=== PATIENT | male | born 1935 | race Caucasian/White ===

== ENCOUNTER 2020-09-28 13:44 | Inpatient (IN) | payer OTHER ==
[~2020-09-28] VITALS: Ht 180.3 cm; Wt 105.9 kg
[~2020-09-28 13:44] MED LIST: ALDACTONE25 MG PO; AMLODIPINE BESY10 MG PO; ASPIR 8181 MG PO; BLOOD PRESSURE MED; CARAFATE 1 GM TA1 G1 PO; CO Q-1050 MG PO; COZAAR 25 MG TA25 MG PO; FISH OIL500 MG PO; IBUPROFEN 200200 M1 PO; LIPITOR10 MG PO; PAIN RELIEF CRE57 GM TP; PROTONIX40 M1 PO; SUPER B-50 COM1 EACH PO; TYLENOL325 MG PO
[2020-09-28 13:50] VITALS: BP 88/51
[2020-09-28 14:23] LABS: ABSOLUTE NEUTROPHILS 11.6 thou/uL (1.4-8.2); BASOPHILS 0.5 % (0.0-2.0); EOSINOPHILS 0.8 % (0.0-3.0); HEMATOCRIT 39.7 % (42.0-52.0); HEMOGLOBIN 13.3 gm/dL (14.0-18.0); LYMPHOCYTES 3.5 % (24.0-44.0); MCH 35.1 pg (26.0-34.0); MCHC 33.4 g/dL (28.0-37.0); MCV 105.3 fL (80.0-100.0); MONOCYTES 4.9 % (1.0-8.0); PLATELET COUNT 225 thou/uL (150-400); POLYS 90.3 % (36.0-66.0); RBC 3.78 mil/uL (4.50-6.00); WBC 12.8 thou/uL (4.0-11.0)
[2020-09-28 14:30] LABS: BE(vivo) -1.9 mmol/L (-2 to +3); HCO3 21.7 mmol/L (22.0-26.0); PCO2 33.7 mmHg (35.0-45.0); PO2 70.7 mmHg (80.0-100.0); pH 7.427 (7.360-7.450); sO2 94.8 % (92.0-98.0)
[2020-09-28 14:34] LABS: ANION GAP 11 mmol/L (7-16); BUN 41 mg/dL (7-18); CHLORIDE 102 mmol/L (98-107); CO2 26 mmol/L (21-32); CREATININE 2.6 mg/dL (0.7-1.3); GLUCOSE 125 mg/dL (74-106); POTASSIUM 4.1 mmol/L (3.5-5.1); SODIUM 139 mmol/L (136-145)
[2020-09-28 14:44] LABS: ALBUMIN 3.9 g/dL (3.4-5.0); DIRECT BILIRUBIN 0.3 mg/dL (<0.1-0.2); MAGNESIUM 2.5 mg/dL (1.8-2.4); PHOSPHORUS 3.4 mg/dL (2.6-4.7); SGOT 34 U/L (15-37); SGPT 32 U/L (16-63); TOTAL BILIRUBIN 1.3 mg/dL (0.2-1.0); TOTAL PROTEIN 8.1 g/dL (6.4-8.2); TROPONIN-I <0.06 ng/mL (<0.06)
--- NOTE | 2020-09-28 14:56 | EKG ---
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 : 1935 Requested By: Ismael Tai Order Number: [id number] MD: Noman Webb Measurements Intervals [place] Rate: 60 P: 119 ND: 182 QRS: 139 QRSD: 171 T: 0 QT: 526 QTc: 526 Interpretive Statements A-V dual-paced rhythm with some inhibition No further analysis attempted due to paced rhythm Baseline wander in lead(s) V3 Compared to ECG 12/10/2014 08:02:48 Sinus rhythm no longer present First degree AV block no longer present Right bundle-branch block no longer present Left anterior fascicular block no longer present Bifascicular block no longer present Myocardial infarct finding no longer present Electronically Signed On 09-28-2020 14:56:08 CDT by Noman Webb [email or web address] <ELECTRONICALLY SIGNED> By: Noman Webb MD, FAC 09/28/20 1456 1439 1439 Noman Webb MD, [facility] /EPI
[2020-09-28 15:33] LABS: URINE BILIRUBIN NEGATIVE (Negative); URINE BLOOD NEGATIVE (Negative); URINE CLARITY CLEAR; URINE COLOR YELLOW; URINE GLUCOSE-RANDOM* NEGATIVE (Negative); URINE KETONES NEGATIVE (Negative); URINE LEUKOCYTES-REFLEX NEGATIVE (Negative); URINE NITRITE-REFLEX NEGATIVE (Negative); URINE PROTEIN (DIPSTICK) NEGATIVE (Negative); URINE UROBILINOGEN 0.2 E.U./dl (0.2-1.0)
[2020-09-28 15:36] VITALS: BP 105/71
[2020-09-28 16:44] VITALS: BP 107/72
[2020-09-28 17:00] VITALS: BP 103/72
--- NOTE | 2020-09-28 18:31 | NUR ---
PATIENT ADMITTED TO 358 THIS SHIFT. PATIENT'S , ELIE, AND DAUGHTER, ANDIE, AT BEDSIDE. UPON ARRIVAL, PATIENT'S O2 MID 80'S, PATIENTS EARS AND NOSE PURPLE/DUSKY ON 4L NC. TITRATED O2 TO 6L NC AND O2 SAT INCREASED TO LOW 90'S, OTHERWISE VSS. SEE ADMISSION ASSESSMENT.
[2020-09-28 19:28] VITALS: BP 106/56
[2020-09-29 04:09] VITALS: BP 93/51
[2020-09-29 05:15] LABS: HEMATOCRIT 33.4 % (42.0-52.0); HEMOGLOBIN 11.5 gm/dL (14.0-18.0); MCH 35.9 pg (26.0-34.0); MCHC 34.3 g/dL (28.0-37.0); MCV 104.7 fL (80.0-100.0); RBC 3.19 mil/uL (4.50-6.00); RDW 15.7 % (10.5-14.5); WBC 12.5 thou/uL (4.0-11.0)
[2020-09-29 05:20] LABS: CALCIUM 8.8 mg/dL (8.5-10.1); CREATININE 2.8 mg/dL (0.7-1.3); POTASSIUM 4.3 mmol/L (3.5-5.1)
--- NOTE | 2020-09-29 06:47 | NUR ---
PROGRESS PT A/O X4 VSS, BP A LITTLE LOW BUT PT NOT OOB THIS SHIFT 89/51. SL LOCK TO RAC FLUSHES WITHOUT DIFFICULTY. 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 HOGAN CATH DRAINING A LARGE AMOUNT OF CLEAR YELLOW URINE. PT DENIES PAIN. SCD' IN PLACE CONTINUE TO MONITOR.
[2020-09-29 08:09] VITALS: BP 92/60
--- NOTE | 2020-09-29 13:43 | NUR ---
PT ON 6L OF OXYGEN, SOB WITH EXERTION. CPAP AT NIGHT TIME. UP CHAIR WITH PT, CHAIR ALARM ON. HOGAN CATHETER IN PLACE, PATENT AND SECURED. FALL PRECAUTIONS IN PLACE. PT FAMILY VISITING. DENIES ANY NEEDS AT MOMENT.
--- NOTE | 2020-09-29 14:09 | NUR ---
Case opened to follow for possible home o2/ home health referrals at me. Technical Project Coordinator visited with the pt and his spouse Do at [facility]. He is a&ox4 and reports that he is feeling better but concerned he may need home o2 at me. He has had it before but sent it back as he didn't want to use it at home and hassle with the big Etanks for outings. He has not had any hh before. He lives with his in their split level home of many years. He has a rwalker and cpap and is normally independent with gait and adl's. His pcp is Dr. Vineet Sethi. They have modified their home with stair glides so they can manage the multiple levels with easy. No steps to enter through the garage. does the laundry in the basement. He is open to home o2 again and hh if needed at me. He is not sure he will be homebound. He denies preference for providers. He notes multi level home makes o2 mgnt difficult especially with Etanks. He might consider an [employer] system. M tanks and concentrator discussed as well as they are smaller. Referrals faxed to [facility] for possible referrals. Pt would like to see how he does before accepting either service. Cm role introduced. Will follow along and revisit with pt once me recommendations noted.
[2020-09-29 15:25] VITALS: BP 95/63
[2020-09-29 19:09] VITALS: BP 100/69
[2020-09-30 04:15] VITALS: BP 105/66
[2020-09-30 04:49] LABS: MCH 36.1 pg (26.0-34.0); MCHC 34.4 g/dL (28.0-37.0); RBC 3.05 mil/uL (4.50-6.00)
[2020-09-30 05:02] LABS: ANION GAP 11 mmol/L (7-16); BUN 47 mg/dL (7-18); CALCIUM 8.7 mg/dL (8.5-10.1); CHLORIDE 99 mmol/L (98-107); CO2 25 mmol/L (21-32); CREATININE 2.6 mg/dL (0.7-1.3); GLUCOSE 105 mg/dL (74-106); POTASSIUM 3.6 mmol/L (3.5-5.1); SODIUM 135 mmol/L (136-145)
--- NOTE | 2020-09-30 06:24 | NUR ---
PROGRESS PT A/O X4 IV SL FLUSHES WITHOUT DIFICULTY. PT NOT OOB THIS SHIFT BUT WAS UP IN CHAIR FOR MOST OF DAY. VSS, ON 4 TO 6 LITRS O2 CPAP APPLIED AT HS PT SLEPT SOUNDLY ALL SHIFT. UP THIS AM ASKED IF HIS DISCHARGE PAPERS WERE READY. STATES HE FEELS GOOD AND WANTS TO GO HOME. HOGAN INTACT DAINING CLEAR YELLOW URINE IN ADEQUATE AMOUNTS NO BM THIS SHIFT PT DENIES PAIN AND NAUSEA.
[2020-09-30 06:58] VITALS: BP 95/64
--- NOTE | 2020-09-30 08:42 | 2DMMODE ---
[facility] [place] [address] 2 D/M-MODE ECHOCARDIOGRAM Name: ESSENCE RODRÍGUEZ Room #: 358-P ADM IN M.R.#: [id number] Admission: 09/28/20 Attend Phys: Jarvis Davey MD Discharge: Date of : 37 Report #: [id number] THIS REPORT FOR: cc: Deion Sethi MD, Christopher B. MD Lundgren, Craig H. MD [facility] ~ APPROVED REPORT Study performed: 09/30/2020 07:51:15 EXAM: Comprehensive 2D, Doppler, and color-flow Echocardiogram Patient Location: Bedside Room #: 358 Status: routine BSA: 2.26 HR: 65 bpm BP: 95/64 mmHg Rhythm: Pacemaker Other Information Study Quality: Adequate Technically limited study due to obesity. Indications Short of breath, swelling, CHF. Hx: CABG, CHF, AICD 2D Dimensions RVDd: 50.97 mm IVSd: 9.03 (7-11mm) LVOT Diam: 23.68 (18-24mm) LVDd: 63.91 mm PWd: 9.50 (7-11mm) Ascending Ao: 36.33 (22-36mm) LVDs: 60.07 (25-40mm) Left Atrium: 49.39 (27-40mm) Aortic Root: 38.11 mm Volumes Left Atrial Volume (Systole) Single Plane 4CH: 95.47 mL Single Plane 2CH: 118.89 mL LA ESV Index: 51.00 mL/m2 Aortic Valve AoV Peak Luis Enrique.: 1.14 m/s AO Peak Gr.: 5.23 mmHg LVOT Max P.16 mmHg [facility] [address] [place] [address] 2 D/M-MODE ECHOCARDIOGRAM Name: ESSENCE RODRÍGUEZ Aubrey Room #: 358-P [facility] IN [facility]#: [id number] Admission: 09/28/20 Attend Phys: Jarvis Davey MD Discharge: Date of : 37 Report #: [id number] LVOT Max V: 0.54 m/s MANJU Vmax: 2.07 cm2 Mitral Valve MV Decel. Time: 156.31 ms MV E Max Luis Enrique.: 0.89 m/s Pulmonary Valve PV Peak Luis Enrique.: 0.78 m/s PV Peak Gr.: 2.44 mmHg Pulmonary Vein P Vein S: 0.50 m/s P Vein D: 0.64 m/s P Vein S/D Ratio: 0.78 Tricuspid Valve TR Peak Luis Enrique.: 3.50 m/s RAP Estimate: 10.00 mmHg TR Peak Gr.: 49.07 mmHg PA Pressure: 59.00 mmHg Left Ventricle Left ventricle is moderately dilated. There is global hypokinesis of the left ventricle. There is normal left ventricular wall thickness. Left ventricular systolic function is severely decreased. LVEF is less than 20%. This study is not technically sufficient to allow evaluation of the LV diastolic function. Right Ventricle Right ventricle is moderately dilated. Right ventricle is hypokinetic. Atria Left atrium is severely dilated. Right atrium is moderately dilated. Aortic Valve The aortic valve is mildly calcified. Trace aortic regurgitation. There is no aortic valvular stenosis. Mitral Valve Mild mitral annular calcification. Mild mitral regurgitation. No evidence of mitral valve stenosis. Tricuspid Valve The tricuspid valve is normal in structure. Mild to moderate tricuspid regurgitation. Estimated PAP is 55-60mmHg. [facility] [address] [place] [address] 2 D/M-MODE ECHOCARDIOGRAM Name: ESSENCE RODRÍGUEZ Aubrey Room #: 358-P [facility] IN ..#: [id number] Admission: 09/28/20 Attend Phys: Javris Davey MD Discharge: Date of : 37 Report #: [id number] Pulmonic Valve The pulmonary valve is normal in structure. Mild pulmonic regurgitation. Great Vessels Aortic root is borderline dilated. The ascending aorta is normal in size. IVC is dilated and collapses >50% with inspiration. Pericardium There is no pericardial effusion. <Conclusion> Left ventricular systolic function is severely decreased. There is global hypokinesis of the left ventricle. LVEF is less than 20%. Both atria are dilated. Pacing or ICD wires in right heart The aortic valve is mildly calcified. Trace aortic regurgitation, no stenosis. Mild mitral annular calcification. Mild mitral regurgitation. Mild to moderate tricuspid regurgitation. Estimated pulmonary artery pressure of 55-60mmHg. There is no pericardial effusion. <ELECTRONICALLY SIGNED> By: Mitul Alfredo MD, [facility] 09/30/20841 1 1 Mitul Alfredo MD, FAC /INF
[2020-09-30 08:49] LABS: CHOLESTEROL 119 mg/dL (<200); HDL CHOLESTEROL 53 mg/dL (>40); LDL CHOLESTEROL 55 mg/dL (<100); TC:HDL 2.2 Ratio (Not establshd); TRIGLYCERIDE 59 mg/dL (<150); VLDL 12 mg/dL (<40)
--- NOTE | 2020-09-30 13:40 | NUR ---
SW reviewed chart and spoke with nursing and attending physician. Pt is slowly progressing towards goals for discharge. Discharge home is anticipated in 1-2 days. Pt is on 5L of O2. Pt had chest CT earlier today. [facility] are following for HH and Home O2. SW met with pt and spouse at bedside to provide update and discuss discharge plan. Pt and spouse are agreeable. SW is following to assist as needed with discharge planning.
[2020-09-30 15:11] VITALS: BP 97/64
[2020-09-30 20:54] VITALS: BP 103/60
[2020-10-01] VITALS (14 sets, daily range): BP systolic 91–107; BP diastolic 57–70
--- NOTE | 2020-10-01 04:17 | NUR ---
Patient making slow progress towards outcome goals, High fall risks, fall precautions in place. Requiring 6L oxygen bled in CPAP to maintain adequate oxygenation.
--- NOTE | 2020-10-01 09:11 | HC ---
[facility] [place] [address] CONSULTATION Name: ESSENCE RODRÍGUEZ Room #: 358-[facility] IN .R.#: [id number] Admission: 09/28/20 Attend Phys: Jarvis Davey MD Discharge: Date of : 37 Report #: [id number] THIS REPORT FOR: cc: Deion Sethi MD, Christopher B. MD Barry, Joseph W. MD ~ DOC #: [id number] Yung Alvarado MD DATE OF SERVICE: 09/30/2020 INFECTIOUS DISEASE CONSULTATION ATTENDING PHYSICIAN: Jarvis Davey MD REASON FOR EVALUATION: Pneumonitis complicated by respiratory failure. HISTORY OF PRESENT ILLNESS: Chart reviewed. The patient examined. This 85-year-old gentleman with fairly extensive medical history, has known history of cardiomyopathy with congestive heart failure, obstructive sleep apnea, previous stroke, who presented to the emergency room with progressive shortness of breath. Family is present. Spouse notes ongoing roughly 2-3 weeks; however, had abrupt worsening over the course of the 24 hours prior to his admission. He was evaluated and found to be markedly hypothyroid with TSH of 66. Chest x-ray showed perihilar infiltrates, some nodularity. Followup CT of the chest, there is question of atypical pneumonitis noted, has had increasing swelling of bilateral lower extremities as well. It is not clear if he had any fevers or chills, shakes or sweats. He has had a cough that is only intermittently productive per spouse. He was found to be hypoxemic and placed on supplemental oxygen per nasal cannula. Range of 4-6 liters. He was empirically started on combination therapy with ceftriaxone and azithromycin. Blood cultures were collected at time of admission are sterile thus far. Overall, he appears somewhat improved. ALLERGIES: None known. MEDICATIONS: Include torsemide, carvedilol, ceftriaxone, aspirin, levothyroxine, pantoprazole, sucralfate, atorvastatin, ondansetron, azithromycin, had been on amiodarone felt to perhaps causing the thyroid issues even underlying pneumonitis. PAST MEDICAL HISTORY: As described above. He has a known cardiomyopathy with depressed ejection fraction, history of CHF. He has known coronary artery disease, previous aortocoronary bypass grafting in 2018, previous CVAs, obstructive sleep apnea requiring CPAP, 2 previous history of pneumonia. SOCIAL HISTORY: Former smoker, no ethanol, no illicit drug use. [facility] [address] [place] [address] CONSULTATION Name: ESSENCE RODRÍGUEZ Room #: 358-P [facility] IN [facility]#: [id number] Admission: 09/28/20 Attend Phys: Jarvis Davey MD Discharge: Date of : 37 Report #: [id number] FAMILY HISTORY: Noncontributory. REVIEW OF SYSTEMS: Otherwise, unremarkable with the exception of the above. PHYSICAL EXAMINATION: GENERAL: Appears somewhat chronically ill and undernourished, is pleasant, although at times somewhat irritable during the exam, diminished affect. VITAL SIGNS: Temperature 98.5, pulse 60, respirations 16, blood pressure 95/64. SKIN: Warm, dry, no rashes. HEENT: ____. There is a cannula in place. NECK: Supple. LUNGS: Diminished breath sounds. HEART: Regular, borderline bradycardic. LABORATORY DATA: Blood cultures collected negative thus far. Electrolytes: Sodium 135, potassium 3.6, chloride 99, bicarbonate is 25, anion gap of 11, BUN and creatinine 47 and 2.6. Estimated GFR of 24. Echo noted EF of less than 20 percent, global hypokinesis, mild mitral regurgitation, mild to moderate tricuspid regurgitation, trace aortic regurgitation. Procalcitonin 5.76, free T4 of 0.3. CBC: White count of 11.0, H&H 11.0 and 32.0, platelets of 170. Lactic acid of 1.8. Coronavirus testing was negative. Urinalysis unremarkable. ASSESSMENT: Pneumonitis perhaps multifactorial, cannot entirely exclude community-acquired pneumonia. Clinically, he is better, although he is still in respiratory failure requiring ____ significant amounts of supplemental oxygen at this point, certainly could have a component of congestive heart failure, EF of less than 20. Also, amiodarone could be playing a factor as well. At this point, would continue current approach with antibiotics and see how he does clinically in the next 24-48 hours. Increase activity as allowed to wean off support. We will add incentive spirometry. MD ZEKE Altman/PAMELA/ANI <ELECTRONICALLY SIGNED> By: Yung Alvarado MD 10/01/20 0911 1412 0236 Yung Alvarado MD /nt
[2020-10-01 09:22] LABS: HEMATOCRIT 30.7 % (42.0-52.0); HEMOGLOBIN 10.3 gm/dL (14.0-18.0); MCH 35.2 pg (26.0-34.0); MCHC 33.7 g/dL (28.0-37.0); MCV 104.5 fL (80.0-100.0); RBC 2.93 mil/uL (4.50-6.00); RDW 15.6 % (10.5-14.5); WBC 11.1 thou/uL (4.0-11.0)
[2020-10-01 09:30] LABS: CALCIUM 8.6 mg/dL (8.5-10.1); CREATININE 2.5 mg/dL (0.7-1.3); MAGNESIUM 2.3 mg/dL (1.8-2.4); POTASSIUM 3.6 mmol/L (3.5-5.1)
--- NOTE | 2020-10-01 14:14 | NUR ---
FRANCESCA reviewed chart and spoke with nursing and attending physician. 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 Pt is on 6L of O2 and is on IV abx. Weekend discharge possible. Pt will need a rest/exercise oximetry to determine home O2 needs, as pt was not on O2 prior to admission. [facility] is able to provide home O2 for pt if needed. [facility] is following for home health service if needed. Finalized discharge orders/summary will need to be faxed when available. Will need script for home O2. Contact info to be placed in pt's discharge summary if needed. [facility] is following to assist as needed with discharge planning. [facility]-- [facility]--
--- NOTE | 2020-10-01 17:25 | CATHLAB ---
[facility] [place] [address] INVASIVE PROCEDURE REPORT Name: ESSENCE RODRÍGUEZ Room #: 358-P ADM IN .R.#: [id number] Admission: 09/28/20 Attend Phys: Jarvis Davey MD Discharge: Date of : 37 Report #: [id number] THIS REPORT FOR: cc: Deion Sethi MD, Christopher B. MD Mancuso, Gerald M. MD [facility] ~ APPROVED REPORT Study performed: 10/01/2020 10:36:43 Patient Details Patient Status: In-Patient Room #: The patient is a 85 year-old male Event Personnel Sivakumar Hsu Energy Consultant, Gosia Valdivia RN RN, Lakeisha Khan RTR, [place] AUDITOR Monitor, Annabelle Castaneda Procedures Performed Art Access - R femoral artery* Grant Access - R femoral vein Right and Left Heart Cath Lt Vent/Cors/Grafts [id number] Hemostasis w/ Mynx Hemostasis with Manual pressure Indication Dyspnea Procedure Narrative The Right Groin^ was infiltrated with 1% Lidocaine subcutaneous anesthesia. A PINNACLE 6FR Sheath #[id number] sheath was inserted into the RFA. Coronary angiography was performed using coronary diagnostic catheters. The right coronary system was accessed and visualized with a JR4 catheter. The left coronary system was accessed and visualized with a JL4 catheter. The left ventricle was accessed and visualized with a PIGTAIL catheter. Left ventricular/Aortic Valve gradient assessed via catheter pullback. Closure device was deployed with a 6 Fr MYNXGRIP 6/7F #[id number]. Hemostasis was obtained with manual pressure following sheath removal without any complications. The patient tolerated the procedure well and there were no complications associated with the procedure. There was no hematoma. Intraoperative Conscious Sedation No conscious sedation was used. [facility] [address] [place] [address] INVASIVE PROCEDURE REPORT Name: RODRÍGUEZESSENCE Room #: 358-[facility]#: [id number] Admission: 09/28/20 Attend Phys: Jarvis Davey MD Discharge: Date of : 37 Report #: [id number] Fluoro Time: 15.30 minutes Dose: DAP 74019.10 cGycm2 1677 mGy Contrast Type and Amount: Visipaque 60 ml Hemodynamics The right atrial mean pressure is 14 mmHg. The right ventricular pressure is 65/3 mmHg. The pulmonary artery pressure is 59/28 mmHg with a mean of 40 mmHg. The mean pulmonary capillary wedge pressure is 27 mmHg. The aortic pressure is 98/61 mmHg with a mean of 74 mmHg. The left ventricular pressure is 92/16 mmHg with a mean of mmHg. The left ventricular end diastolic pressure is 32 mmHg. The cardiac output using thermo method is 2.30 L/min. The cardiac index using thermo method is 1.01 L/min/m2. Conclusion #1. Successful right heart catheterization with cardiac output by thermodilution. See above hemodynamics. #2 left main moderately disease giving rise to an occluded [place] system both LAD and circumflex essentially proximally occluded. #3 there is a large ectatic dominant right coronary artery. With PAUL grade II-III flow filling a diffusely diseased PDA there is a distal lesion and possibly in-stent restenosis in the distal previously placed stent of 80%. Slowly filling a PDA. None of this looks amenable to intervention. #4 apparent radial or vein graft to the PDA is occluded distally. #5 there is a vein graft that is patent and widely patent filling at 1 large OM branch which remains widely patent #6 there is a flush injection of the subclavian artery filling and extremely tortuous HUBER graft to an LAD which show some faint filling but this is not well visualized. But appears to have flow preserved in the LAD system. Recommendations and plan: Continue aggressive risk factor modification IV Lasix to be increased for aggressive diuresis. Significant elevation of pulmonary pressures volume overload elevated EDP. See above hemodynamics. Renal insufficiency exist. Limited contrast utilization. This is extremely tortuous system. The risk of attempting to further cannulate the HUBER would be too high due to renal insufficiency. Appears to be some flush and flow preserved in the LAD. We will treat this aggressively medically. <ELECTRONICALLY SIGNED> By: Sivakumar Hsu MD, [facility] 10/01/201724 24 24 Sivakumar Hsu MD, FACC /INF
--- NOTE | 2020-10-01 19:25 | NUR ---
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
[2020-10-02 04:14] VITALS: BP 103/70
[2020-10-02 04:50] LABS: HEMATOCRIT 30.7 % (42.0-52.0); HEMOGLOBIN 10.5 gm/dL (14.0-18.0); MCH 35.7 pg (26.0-34.0); MCHC 34.3 g/dL (28.0-37.0); MCV 104.1 fL (80.0-100.0); RBC 2.95 mil/uL (4.50-6.00); RDW 15.8 % (10.5-14.5); WBC 9.9 thou/uL (4.0-11.0)
[2020-10-02 05:01] LABS: CALCIUM 8.7 mg/dL (8.5-10.1); CREATININE 2.6 mg/dL (0.7-1.3); MAGNESIUM 2.5 mg/dL (1.8-2.4)
--- NOTE | 2020-10-02 06:48 | NUR ---
PROGRESS PT A/O X4 UP TO CHAIR TODAY TRANSFER WITH 1 GB AND WALKER. VSS, TELE INTACT ON 4 LITERS O2 AND CPAP WITH 4 LITERS O2 AT HS TOLERATING WELL. DENIES PAIN.
[2020-10-02 07:20] VITALS: BP 107/73
[2020-10-02 07:34] VITALS: BP 158/72
[2020-10-02 15:14] VITALS: BP 108/73
--- NOTE | 2020-10-02 17:59 | NUR ---
assuned care of pt at 0700. pt aox3 mild to mod resp distress. weaned to 4L NC - maintains spo2 > 90%. coarse lung sounds. up w/ 1 assist to bsc. small bowel movement. family at bedside. small progress toward poc goals. wcm/
--- NOTE | 2020-10-02 22:59 | NUR ---
PT RESTING IN BED, FAMILY AT BEDSIDE AT BEGINNING OF SHIFT. LUNGS COARSE, SOA, O2 NC. OBESE, GENERALIZED EDEMA, HOGAN. PT CHEERFUL HAPPY, DISCUSSED HAVING FLUID ON LUNGS, 5 HEART ATTACKS, REPORTED SMALL BM ON DAY SHIFT USING BSC. BED ALARM ON.
[2020-10-03 04:03] VITALS: BP 112/73
[2020-10-03 04:48] LABS: HEMATOCRIT 30.7 % (42.0-52.0); HEMOGLOBIN 10.5 gm/dL (14.0-18.0); MCH 35.7 pg (26.0-34.0); MCHC 34.3 g/dL (28.0-37.0); RBC 2.95 mil/uL (4.50-6.00); RDW 15.5 % (10.5-14.5); WBC 9.8 thou/uL (4.0-11.0)
[2020-10-03 05:01] LABS: CALCIUM 8.8 mg/dL (8.5-10.1); CREATININE 2.8 mg/dL (0.7-1.3); MAGNESIUM 2.5 mg/dL (1.8-2.4)
[2020-10-03 07:28] VITALS: BP 113/73
[2020-10-03 15:27] VITALS: BP 112/74
--- NOTE | 2020-10-03 18:40 | NUR ---
PT ASSESSED AT START OF SHIFT. CONSIDTENT MOUTH BREATHER. RESP SOMEWHAT LABORED. SWITCHED TO FACE SHIELD AT 35%. COUGHING UP SOME THICK YELLOW MUCOUS BLOOD TINGED. SPECIMEN SENT TO LAB. UP TO BSC W/ ASSIST TO HAVE BM. EATING FAIR. DIURESED 700MLS. DR. MERCEDES CONSULTED AND WILL SEE PT TOMORROW UNLESS NEEDED BEFORE.
[2020-10-03 19:44] VITALS: BP 115/83
--- NOTE | 2020-10-03 22:41 | NUR ---
PT ALERT X2. MILDLY CONFUSED. SATS 96 % ON FACE SHEID. 35%. SAT DECREASED TO 86-90% ON CPAP. RT NOTIFIED. O2 INCREASED TO 8LNC BLED IN. DR MERCEDES NOTIFIED PER RT. RT TX CHANGED AND ADDED. WILL START IV STEROIDS ORDERED WHEN AVAILABLE. BED DOWN. CALL LIGHT IN REACH. SIDERAILS UP X3. BED ALARM IS ON. REINSRUCTED PT ON FALL PRECAUTIONS.
[2020-10-03 23:30] VITALS: BP 110/74
[2020-10-03 23:46] LABS: BE(vivo) -1.7 mmol/L (-2 to +3); HCO3 21.5 mmol/L (22.0-26.0); PCO2 31.6 mmHg (35.0-45.0); PO2 67.9 mmHg (80.0-100.0); sO2 94.5 % (92.0-98.0)
[2020-10-04 03:38] VITALS: BP 107/71
[2020-10-04 05:49] LABS: HEMATOCRIT 29.5 % (42.0-52.0); HEMOGLOBIN 10.2 gm/dL (14.0-18.0); MCHC 34.5 g/dL (28.0-37.0); MCV 104.4 fL (80.0-100.0); RBC 2.83 mil/uL (4.50-6.00); RDW 15.7 % (10.5-14.5); WBC 8.2 thou/uL (4.0-11.0)
[2020-10-04 06:04] LABS: CALCIUM 8.8 mg/dL (8.5-10.1); CREATININE 2.9 mg/dL (0.7-1.3); MAGNESIUM 2.6 mg/dL (1.8-2.4); POTASSIUM 3.9 mmol/L (3.5-5.1)
--- NOTE | 2020-10-04 06:25 | NUR ---
PT ALERT WITH PERIODS OF CONFUSION. HE PULLS OFF BIPAP TUBING AND ATTEMPTED TO GET OOB WITHOUT HELP X1. DR MERCEDES WAS NOTIFIED PER RT RE CONFUSION AND O2SATS, AND INCREASED WHEEZING. RT TXS CHANGED. METHYLPREDISOLONE ORDERED AND GIVEN. LATER ABGS DONE AND RT STATED SHE CALLED RESULTS TO DR MERCEDES. PT ON BIPAP NOW 03/01 7L BLED IN . HE IS RESTING CALMLY NOW. ALERT AND ORIENTED X4. BED ALARM IS ON.
[2020-10-04 07:16] VITALS: BP 113/74
[2020-10-04 15:38] VITALS: BP 114/75
--- NOTE | 2020-10-04 15:44 | NUR ---
ON-GOING ASSESSMENT: CM REVIEWED CHART AND SPOKE WITH ATTENDING WELL PATIENT AND HIS WHO IS AT THE BEDSIDE. PT REMAINS ON IV STEROIDS AND IV ANBX. PT CONTINUES TO BE ON 6L OXYGEN. PT/OT SEEING PATIENT. PER ATTENDING PT WILL LIKELY REMAIN HERE ANOTHER FEW DAYS. CM DISCUSSED POST ACUTE CARE WITH PATIENT. PT AND HIS ARE AGREEABLE. REPORTS PT HAD BEEN TO [facility] IN THE PAST AND WOULD NEVER GO BACK. SHE REPORTS LAST TIME THAT THEY PRIVATELY PAID FOR HIM TO GO TO [facility] IN [place] AND LOVED THAT COMMUNITY. CM DISCUSSED THAT IT IS NOT IN-NETWORK WITH HIS INSURANCE AND THAT IS WHY THEY PRIVATELY PAY BUT THERE ARE SNF IN NETWORK WHERE THEY COULD AVOID THAT COST. REPORTS SHE UNDERSTANDS THIS AND CM PROVIDED HER WITH A LIST OF SNF IN NETWORK THAT FAMILY WILL REVIEW BUT THEY ARE ALSO OPEN TO PRIVATELY PAYING FOR HIM TO GO BACK TO [facility] SINCE THEY ARE FAMILIAR WITH IT AND LOVED THE CARE. CM SPOKE WITH ADMISSIONS AT [facility] WHO CONFIRMED PT HAD BEEN THERE PRIVATE PAY IN THE PAST AND WOULD COST AROUND 450/DAY FOR ROOM AND BOARD AND NURSING CARE OR 650/DAY ALL INCLUSIVE INCLUDING PT/OT. CM NOTIFIED PT AND AND SHE STATES THEY WILL LIKELY GO TO [facility] AND WANTED REFERRAL THERE BUT WILL ALSO REVIEW SNF LIST. CM FAXED REFERRAL TO [facility]. CM WILL CONTINUE TO FOLLOW TO ASSIST NEEDED.
[2020-10-04 17:06] LABS: HIV ANTIBODY Non Reactive (Non Reactive)
--- NOTE | 2020-10-04 19:12 | NUR ---
RN ASSUMED PT'S CARE AT 0700AM, PT IS A&OX2 ( PERSON AND PLACE), PT CAN FOLLOW COMMANDS, PT IS ON O2 4-6 L/MIN/NC, PT HAS SOB WITH ACTIVITIES, PT IS CONTINUING IV ABX, PT GETS UP TO CHAIR WITH ASSIST, PT 'S FAMILY STAY AT PT'S BEDSIDE, PT DENIES PAIN AT THIS TIME.
[2020-10-04 19:58] VITALS: BP 99/70
--- NOTE | 2020-10-04 22:15 | NUR ---
PT MILDLY CONFUSED AT TIMES. HE TAKES OFF HUIS FACE SHEILD OR BIPAP MASK AT TIMES. ENCOURAGED TO KEEP ON. SATS PRESENTLY WNL WITH BIPAP ON BUT DESATS DOWN INTO 80s QUICKLY WITH MASK OFF. DENIED PAIN. RT TX GIVEN. BED DOWN . CALL LIGHT IN REACH. BED ALARM IS ON. WILL CONTINUE TO MONITOR PT FOR CHANGES.
[2020-10-04 23:58] VITALS: BP 115/70
[2020-10-05 04:17] VITALS: BP 95/64
[2020-10-05 04:55] VITALS: BP 109/56
[2020-10-05 06:06] LABS: HEMATOCRIT 29.9 % (42.0-52.0); HEMOGLOBIN 10.2 gm/dL (14.0-18.0); MCH 35.2 pg (26.0-34.0); MCHC 33.9 g/dL (28.0-37.0); MCV 103.7 fL (80.0-100.0); RBC 2.89 mil/uL (4.50-6.00); RDW 15.4 % (10.5-14.5)
--- NOTE | 2020-10-05 06:27 | NUR ---
PT IS PROGRESSING SLOWLY TOWARDS D/C GOALS. LASIX GIVEN ORDERED. HOGAN DRAINING CLEAR YELLOW URINE. PT IS RESTING QUIETLY SLEEPING. PT MILDLY CONFUSED OVERNIGHT. PULLS OFF BIPAP IN HIS SLEEP HE STATED. SATS WNL WITH BIPAP ON.
[2020-10-05 06:33] LABS: CALCIUM 8.9 mg/dL (8.5-10.1); CREATININE 2.6 mg/dL (0.7-1.3); MAGNESIUM 2.7 mg/dL (1.8-2.4); POTASSIUM 3.9 mmol/L (3.5-5.1)
[2020-10-05 07:38] VITALS: BP 101/68
[2020-10-05 09:08] LABS: GLOMERULR BASEM MEMBRN AB 4 units (0-20)
--- NOTE | 2020-10-05 09:40 | NUR ---
Nutrition: pt admitted with SOA, seen for LOS. PMH: CHF, CAD, HTN, CABG, HLD, CVA. Labs/meds reviewed. PO intake fair averaging 50% of meals. Pt voices he is not a big eater and current intake about normal. Reports weight gain over the course of past year since CABG-approx 20#. Current BMI 33, obesity class 1. On 2 diuretics with 2+ generalized edema noted. Reinforced importance of heart healthy diet, pt familiar. /pt order meals as desired. Glucerna ordered daily due to suboptimal intake and pt enjoys the supplement. Consider low nutrition risk with interventions in place.
--- NOTE | 2020-10-05 15:43 | NUR ---
FRANCESCA reviewed chart and spoke with nursing, fundraising assistant and attending physician. Pt remains on 6L of O2 and on IV abx, IV steroids and IV lasix. Pt required bipap support overnight. FRANCESCA spoke with Tiago in admissions at [facility] to follow up on referral. [facility] is able to accept pt from a clinical standpoint. Business office is willing to check pt's eai-mm-erzwaiv benefits to see if they would provide any coverage. FRANCESCA is following to assist as needed with discharge planning.
[2020-10-05 16:03] VITALS: BP 103/73
--- NOTE | 2020-10-05 17:52 | NUR ---
RN ASSUMED PT'S CARE AT O700AM, PT IS A&OX2 ( PERSON AND PLACE), PT IS ON FACE MASK O2 6-8L/MIN/NC TO KEEP O2SAT AT 92-98%, PT HAS SOB WITH ACTIVITIES, PT GETS UP TO CHAIR WITH ASSIT, PT NEEDS HELP ADL.PT'S FAMILY STAY AT PT'S BEDSIDE, PT DENIES PAIN AT THIS TIME.
[2020-10-05 19:07] LABS: ANA INTERPRETATION Negative (())
[2020-10-05 19:45] VITALS: BP 98/68
[2020-10-06 04:15] VITALS: BP 98/57
[2020-10-06 07:19] VITALS: BP 106/69
--- NOTE | 2020-10-06 07:41 | NUR ---
PT MAKING SLOW PROGRESS TOWARDS GOALS. ON O2 AT 5L PER NC UPON INITIAL ASSESSMENT. ON HIS BIPAP AT NIGHT TIME WITH 5L O2 BLEED IN. INCREASED TO 8L TO KEEP O2 SATS GREATER THAN 92% WHILE ASLEEP. NOTED LUNGS DIMINISHED WITH WHEEZES THROUGHOUT OVERNIGHT. CONTINUE TO MONITOR.
[2020-10-06 09:36] LABS: CALCIUM 8.7 mg/dL (8.5-10.1); CREATININE 2.8 mg/dL (0.7-1.3)
--- NOTE | 2020-10-06 14:17 | NUR ---
FRANCESCA reviewed chart and spoke with nursing and attending physician. Pt is slowly progressing towards goals for discharge. Pt is on 7L of O2. Pt remains on IV abx, IV steroids and IV lasix. FRANCESCA met with pt and at bedside. Pt on face shield during SW visit. SW provided update regarding pt's acceptance to [facility]. FRANCESCA explained that pt's insurance can be checked to see if pt has any [id number] benefits. Pt's would like for benefits to be checked. FRANCESCA discussed possible [facility] eval for inpt acute rehab. Pt and would like a 5[facility] consult. SW explained that insurance would need to authorize acute rehab as well. Pt's verbalized understanding. SW notified 5[facility] vocational rehabilitation counselor to request consult. FRANCESCA left voice message for admissions dept at [facility]. FRANCESCA is following to assist as needed with discharge planning.
[2020-10-06 15:25] VITALS: BP 101/59
--- NOTE | 2020-10-06 18:11 | NUR ---
RN ASSUMED PT'S CARE AT 0700AM, PT IS A&OX2 ( PERSON AND PLACE), PT IS CONTINUING IV ABX , PT IS ON FACE MASK O2 35% AT MOST OF TIME, PT STILL HAS SOB WITH ACTIVITIES, PT DENIES PAIN AT THIS TIME, PT'S VS ARE STABLE.
[2020-10-06 18:46] VITALS: BP 109/81
[2020-10-07 04:32] VITALS: BP 101/69
[2020-10-07 07:19] VITALS: BP 115/74
[2020-10-07 10:16] LABS: CALCIUM 9.3 mg/dL (8.5-10.1); CREATININE 2.6 mg/dL (0.7-1.3); POTASSIUM 4.3 mmol/L (3.5-5.1)
--- NOTE | 2020-10-07 14:01 | NUR ---
SW reviewed chart and spoke with nursing and attending physician. Pt is on continuous O2 and requiring face shield/bipap support. Pt is on IV abx. Renal consulted today. Palliative care physician also consulted to discuss goals of care with pt and family. Pt is now a DNR. [facility] is following. Case discussed with 5[facility] medical liaison. [facility] has accepted pt from a clinical standpoint. Will need insurance auth for SNF. Pt will use his xsc-on-[id number] benefits. SW is following to assist as needed with discharge planning.
[2020-10-07 15:48] VITALS: BP 104/72
--- NOTE | 2020-10-07 17:12 | NUR ---
assumed care of pt at 0700. pt aox2 mod resp distress. requiring 35% fio2/6L NC. palliative care consult placed - now DNR status. adequate urine output. voicing no particular complaints, other than wanting to go home. wcm
[2020-10-07 19:27] VITALS: BP 112/72
[2020-10-08 04:21] VITALS: BP 103/66
--- NOTE | 2020-10-08 07:28 | NUR ---
PT MAKING POOR PROGRESS TOWARDS GOALS. ON BIPAP OVERNIGHT NIGHT WITH 5L O2 BLED IN. PT WORE BIPAP FROM 2200 TO 0630. NOTED LUNGS WITH WHEEZING THROUGHOUT. PT DOES STATE THAT HE FEELS HE IS BREATHING EASIER THAN HE WAS SEVERAL DAYS AGO.
[2020-10-08 07:33] VITALS: BP 99/68
[2020-10-08 10:19] LABS: CALCIUM 9.3 mg/dL (8.5-10.1); CREATININE 2.6 mg/dL (0.7-1.3); POTASSIUM 4.4 mmol/L (3.5-5.1)
[2020-10-08 10:50] LABS: PROT/CREAT RATIO 0.3; URINE CREATININE-RANDOM* 47.6 mg/dL; URINE PROTEIN-RANDOM* 15.4 mg/dL (<11.9)
--- NOTE | 2020-10-08 14:22 | NUR ---
FRANCESCA reviewed chart and spoke with nursing and attending physician. Pt is slowly progressing towards goals for discharge to SNF. No weekend discharge planned. Palliative care physician met with pt and family yesterday to discuss goals of care. Pt's would like for pt to go to [facility] SNF prior to returning home. FRANCESCA spoke with Tiago in admissions at [facility] and notified of anticipated discharge for Sunday. Also discussed with the business office who states pt is able to use his out of network benefits, but will still need insurance authorization. FRANCESCA met with pt, and dtr at bedside to provide update and discuss discharge plan. Pt's and dtr agreeable with plan and understand need for insurance auth to use out of network benefits. FRANCESCA requested pt be seen by therapy over the weekend. FRANCESCA faxed clinical/therapy updates to [facility] for review. FRANCESCA notified [employer] of request for auth for SNF. FRANCESCA is following to assist as needed with discharge planning.
[2020-10-08 15:57] VITALS: BP 126/75
--- NOTE | 2020-10-08 16:53 | NUR ---
ASSUMED PATIENT CARE AT 0700. A/O 1-2. IMPLUSIVE SOMETIME. ON 50% FACE MASK. DESAT WITH ACTIVITY. AT BED SIDE. SLOWLY TOWARDS POC GOALS.
[2020-10-08 20:11] VITALS: BP 128/77
[2020-10-09 05:20] VITALS: BP 97/68
--- NOTE | 2020-10-09 06:04 | NUR ---
Patient not making progress towards outcome goals. Impulsive and restless. Asking why does his krystle him to . He wants to get out of here. Pulling off monitor leads, pulse ox probe and CPAP machine. Pulled root catheter out with balloon intact, bleeding with clots from meatus. Refusing reinsertion. States he cannot remember what he did. High fall risks, fall precautions in place. Monitor leads placed in back. pulse ox probe applied to toe. Tolerating face shield better at 50%, sats mid to upper 90's. Did not sleep at all tonight. Rhythm a/v paced with underlying Afib with BBB, rate controlled.
[2020-10-09 07:49] VITALS: BP 97/56
[2020-10-09 09:37] LABS: HEMATOCRIT 32.3 % (42.0-52.0); HEMOGLOBIN 10.6 gm/dL (14.0-18.0); MCH 34.5 pg (26.0-34.0); MCHC 32.8 g/dL (28.0-37.0); MCV 104.9 fL (80.0-100.0); PLATELET COUNT 345 thou/uL (150-400); RBC 3.08 mil/uL (4.50-6.00); RDW 16.1 % (10.5-14.5); WBC 18.3 thou/uL (4.0-11.0)
[2020-10-09 09:43] LABS: CALCIUM 8.9 mg/dL (8.5-10.1); CREATININE 2.4 mg/dL (0.7-1.3); POTASSIUM 4.6 mmol/L (3.5-5.1)
[2020-10-09 09:49] LABS: INR 1.58; PROTIME 16.9 Seconds (10.5-12.1)
[2020-10-09 09:51] LABS: ALBUMIN 2.8 g/dL (3.4-5.0); MAGNESIUM 2.9 mg/dL (1.8-2.4); TOTAL BILIRUBIN 0.7 mg/dL (0.2-1.0); TOTAL PROTEIN 6.2 g/dL (6.4-8.2)
[2020-10-09 09:58] LABS: ABSOLUTE NEUTROPHILS 17.2 thou/uL (1.4-8.2); ANISOCYTOSIS 1+; MACROCYTES 1+
[2020-10-09 16:47] VITALS: BP 107/62
--- NOTE | 2020-10-09 18:36 | NUR ---
ASSUMED PATIENT AT 0700/ TOLERATED ON RA. UP AD ELLIOT. DC TO HOME SOON.
--- NOTE | 2020-10-09 19:09 | NUR ---
ASSUMED PATIENT CARE AT 0700. NOTED BLEEDING FROM PENIS. PATIENT PUTED HOGAN OUR WITH BALLON IN SOFTBALL WINDER. DR PANIAGUA NOTIFIED. PUT A 20F HOGAN BACK IN AT 1000. URINE CLEAR NOW. PATIENT A/O 2-3 BUT CONFUSED AND IMPULSIVE. FIAMILY AT BED SIDE. NOT TOWARDS POC GOALS.
[2020-10-09 19:42] VITALS: BP 99/67
--- NOTE | 2020-10-10 02:16 | NUR ---
ASSESSMENT: PT REMAIN ALERT AND ORIENT TIMES TWO, FORGETFUL AND IMPULSIVE AT TIMES. PT'S DAUGHTERS WERE AT THE BEDSIDE AT SHIFT CHANGE. NEW HOGAN PATENT WITH YELLOW URINE. NO VISIBLE BLOOD PRESENT. NO BM. VSS, AFEBRILE. AV AND A-PACED PER MONITOR. PT RESTLESS, MELENTONIN GIVEN WITH MINIMAL RESULTS. UA SENT. MONITOR IS ON THE PTS BACK TO PREVENT HIM FROM PULLING LEADS OFF. DOING FAIR WITH KEEPING CPAP ON, DOES DESAT IN THE MID 80'S WHEN CPAP IS OFF, EASY TO RECOVER. SLOW PROGRESS TOWARDS DC GOALS. WILL CONTINUE TO MONITOR.
[2020-10-10 02:37] LABS: URINE BILIRUBIN NEGATIVE (Negative); URINE BLOOD 3+ (Negative); URINE CLARITY CLEAR; URINE COLOR YELLOW; URINE GLUCOSE-RANDOM* NEGATIVE (Negative); URINE KETONES NEGATIVE (Negative); URINE LEUKOCYTES-REFLEX NEGATIVE (Negative); URINE NITRITE-REFLEX NEGATIVE (Negative); URINE PROTEIN (DIPSTICK) NEGATIVE (Negative); URINE SPECIFIC GRAVITY 1.015 (1.005-1.035); URINE UROBILINOGEN 0.2 E.U./dl (0.2-1.0)
[2020-10-10 03:08] LABS: SQUAMOUS None Seen /LPF (0-3)
[2020-10-10 03:09] LABS: BACTERIA-REFLEX None Seen /HPF (None Seen); CASTS None Seen /LPF (None Seen); CRYSTALS None Seen /LPF (None Seen); MUCUS 0-3 Light strn/LPF (None Seen); URINE RBC 3-10 Few /HPF (NONE SEEN); URINE WBC-REFLEX None Seen /HPF (0-5)
[2020-10-10 04:47] VITALS: BP 134/65
[2020-10-10 04:59] LABS: ABSOLUTE NEUTROPHILS 12.8 thou/uL (1.4-8.2); BASOPHILS 0.3 % (0.0-2.0); EOSINOPHILS 2.2 % (0.0-3.0); HEMATOCRIT 29.3 % (42.0-52.0); HEMOGLOBIN 10.1 gm/dL (14.0-18.0); LYMPHOCYTES 5.1 % (24.0-44.0); MCH 35.7 pg (26.0-34.0); MCHC 34.5 g/dL (28.0-37.0); MCV 103.6 fL (80.0-100.0); MONOCYTES 5.5 % (1.0-8.0); PLATELET COUNT 321 thou/uL (150-400); POLYS 86.9 % (36.0-66.0); RBC 2.82 mil/uL (4.50-6.00); RDW 15.7 % (10.5-14.5); WBC 14.8 thou/uL (4.0-11.0)
[2020-10-10 05:02] LABS: CALCIUM 8.9 mg/dL (8.5-10.1); CREATININE 2.4 mg/dL (0.7-1.3); MAGNESIUM 2.7 mg/dL (1.8-2.4); PHOSPHORUS 2.6 mg/dL (2.6-4.7); POTASSIUM 4.3 mmol/L (3.5-5.1)
[2020-10-10 07:22] VITALS: BP 108/77
[2020-10-10 15:08] VITALS: BP 117/95
--- NOTE | 2020-10-10 18:30 | NUR ---
PATIENT HAS NOT ATTEMPTED TO PULL CATH TODAY. HE WAS UP TO RECLINER MOST OF THE DAY. CHANGED OXYGEN TO NC AT 4L AND HIS SATS HAVE BEEN GOOD SO FAR. WILL CONT WITH PLAN OF CARE.
[2020-10-10 20:08] VITALS: BP 100/58
[2020-10-11 03:52] VITALS: BP 116/76
[2020-10-11 05:22] LABS: HEMATOCRIT 26.8 % (42.0-52.0); HEMOGLOBIN 8.9 gm/dL (14.0-18.0); MCH 34.6 pg (26.0-34.0); MCHC 33.1 g/dL (28.0-37.0); MCV 104.3 fL (80.0-100.0); RBC 2.57 mil/uL (4.50-6.00); RDW 15.7 % (10.5-14.5); WBC 15.9 thou/uL (4.0-11.0)
[2020-10-11 05:29] LABS: CALCIUM 8.6 mg/dL (8.5-10.1); CREATININE 1.9 mg/dL (0.7-1.3); POTASSIUM 4.4 mmol/L (3.5-5.1)
--- NOTE | 2020-10-11 05:46 | NUR ---
Pt. very restless at beginning of shift. He is confused and only oriented to person. Family visited with pt. last night. After they left , pt. started to become restless and found root cath out with balloon inflated. Minimal bleeding from being pulled out , one piece of big blood clot found at the tip of penis. New root catheter placed without any difficulty, yellow urine return with pieces of small clots. Pt. has been reoriented and repositioned for comfort. Pt. had own CPAP machine with 10L O2 bleed in. Maintaining O2 sat in the mid to upper 90's with episodes of apneic periods and desats in the 80's.. He slept fair during the night.
[2020-10-11 06:59] VITALS: BP 91/63
[2020-10-11] MEDS ORDERED: SILDENAFIL20 MG PO (14:20)
[2020-10-11] MEDS ORDERED: FLOMAX0.4 MG PO (14:20)
[2020-10-11] MEDS ORDERED: IPRAT-ALBUT 0.5-3 ML INH (14:20)
[2020-10-11] MEDS ORDERED: CARVEDILOL3.125 MG PO (14:21)
[2020-10-11] MEDS ORDERED: PULMICORT0.5 MG/21 INH (14:22)
[2020-10-11] MEDS ORDERED: MUCINEX600 MG PO (14:22)
[2020-10-11] MEDS ORDERED: DEMADEX20 MG PO (14:22)
[2020-10-11] MEDS ORDERED: SYNTHROID50 MCG PO (14:23)
[2020-10-11] MEDS ORDERED: PREDNISONE 10 M10 M1 PO (14:23)
--- NOTE | 2020-10-11 15:27 | NUR ---
DISCHARGE NOTE: FRANCESCA reviewed chart and spoke with nursing and attending physician. Pt is medically stable for discharge to [facility] SNF today. FRANCESCA faxed updated clinical info to the facility for review. FRANCESCA spoke with Tiago in admissions, who states they have insurance auth and can accept pt today. Wheelchair van transportation scheduled for 1700 through [facility]. [facility] arranged transportation. FRANCESCA updated attending physician to request discharge orders/summary. FRANCESCA met with pt and at bedside to provide update. Pt's is agreeable with discharge plan. FRANCESCA faxed d/c ppwk to [facility]. Received confirmation. Chart copy requested. Nursing to call report. No additional SW needs identified at this time, but is available to assist should needs arise. [facility]--
[2020-10-11 15:29] VITALS: BP 152/128
== END 2020-10-11 17:54 | DRG 871 ==
LOC: ER 13:44 → 3W 15:34 → EROBS 15:34 → 3W 16:44
PROVIDERS: Emergency Medicine; Internal Medicine; Internal Medicine Nephrology; Nurse Practitioner; Nurse Practitioner Adult Health; Specialist; ADMIT Hospitalist; ATTEND Hospitalist
PROC: 5A09357 Assistance with Respiratory Ventilation, Less than 24 Consecutive Hours, Continuous Positive Airway Pressure (ICD-10-PCS; 2020-09-28)
PROC: 5A09357 Assistance with Respiratory Ventilation, Less than 24 Consecutive Hours, Continuous Positive Airway Pressure (ICD-10-PCS; 2020-09-29)
PROC: 5A09357 Assistance with Respiratory Ventilation, Less than 24 Consecutive Hours, Continuous Positive Airway Pressure (ICD-10-PCS; 2020-09-30)
PROC: B213YZZ Fluoroscopy of Multiple Coronary Artery Bypass Grafts using Other Contrast (ICD-10-PCS; principal; 2020-10-01)
PROC: B211YZZ Fluoroscopy of Multiple Coronary Arteries using Other Contrast (ICD-10-PCS; principal; 2020-10-01)
PROC: B218YZZ Fluoroscopy of Left Internal Mammary Bypass Graft using Other Contrast (ICD-10-PCS; principal; 2020-10-01)
PROC: 4A1239Z Monitoring of Cardiac Output, Percutaneous Approach (ICD-10-PCS; principal; 2020-10-01)
PROC: 4A023N8 Measurement of Cardiac Sampling and Pressure, Bilateral, Percutaneous Approach (ICD-10-PCS; principal; 2020-10-01)
PROC: 5A09357 Assistance with Respiratory Ventilation, Less than 24 Consecutive Hours, Continuous Positive Airway Pressure (ICD-10-PCS; principal; 2020-10-01)
PROC: 5A09357 Assistance with Respiratory Ventilation, Less than 24 Consecutive Hours, Continuous Positive Airway Pressure (ICD-10-PCS; 2020-10-02)
PROC: 5A09357 Assistance with Respiratory Ventilation, Less than 24 Consecutive Hours, Continuous Positive Airway Pressure (ICD-10-PCS; 2020-10-03)
PROC: 5A09357 Assistance with Respiratory Ventilation, Less than 24 Consecutive Hours, Continuous Positive Airway Pressure (ICD-10-PCS; 2020-10-04)
PROC: 5A09357 Assistance with Respiratory Ventilation, Less than 24 Consecutive Hours, Continuous Positive Airway Pressure (ICD-10-PCS; 2020-10-05)
PROC: 5A09357 Assistance with Respiratory Ventilation, Less than 24 Consecutive Hours, Continuous Positive Airway Pressure (ICD-10-PCS; 2020-10-07)
PROC: 5A09357 Assistance with Respiratory Ventilation, Less than 24 Consecutive Hours, Continuous Positive Airway Pressure (ICD-10-PCS; 2020-10-08)
PROC: 5A09357 Assistance with Respiratory Ventilation, Less than 24 Consecutive Hours, Continuous Positive Airway Pressure (ICD-10-PCS; 2020-10-09)
PROC: 5A09357 Assistance with Respiratory Ventilation, Less than 24 Consecutive Hours, Continuous Positive Airway Pressure (ICD-10-PCS; 2020-10-10)
PROC: 5A0935A Assistance with Respiratory Ventilation, Less than 24 Consecutive Hours, High Flow/Velocity Cannula (ICD-10-PCS; 2020-10-11)
DX: A41.9 Sepsis, unspecified organism (principal); J18.9 Pneumonia, unspecified organism; J80 Acute respiratory distress syndrome; I50.43 Acute on chronic combined systolic (congestive) and diastolic (congestive) heart failure; I42.9 Cardiomyopathy, unspecified; I13.0 Hypertensive heart and chronic kidney disease with heart failure and stage 1 through stage 4 chronic kidney disease, or unspecified chronic kidney disease; E46 Unspecified protein-calorie malnutrition; G93.40 Encephalopathy, unspecified; S37.39XA Other injury of urethra, initial encounter; N17.9 Acute kidney failure, unspecified; E03.2 Hypothyroidism due to medicaments and other exogenous substances; G47.33 Obstructive sleep apnea (adult) (pediatric); I25.10 Atherosclerotic heart disease of native coronary artery without angina pectoris; E78.5 Hyperlipidemia, unspecified; D64.9 Anemia, unspecified; I08.2 Rheumatic disorders of both aortic and tricuspid valves; K21.9 Gastro-esophageal reflux disease without esophagitis; I27.20 Pulmonary hypertension, unspecified; N18.32 Chronic kidney disease, stage 3b; X58.XXXA Exposure to other specified factors, initial encounter; R33.9 Retention of urine, unspecified; R31.0 Gross hematuria; Z20.822 Contact with and (suspected) exposure to COVID-19; Z79.899 Other long term (current) drug therapy; Z95.1 Presence of aortocoronary bypass graft; Z87.891 Personal history of nicotine dependence; Z86.73 Personal history of transient ischemic attack (TIA), and cerebral infarction without residual deficits; Z68.32 Body mass index [BMI] 32.0-32.9, adult; Z79.82 Long term (current) use of aspirin; Y93.89 Activity, other specified; Y92.89 Other specified places as the place of occurrence of the external cause; Y99.8 Other external cause status; Z95.0 Presence of cardiac pacemaker
CPT/HCPCS: 10879

== ENCOUNTER 2020-10-15 21:21 | Inpatient (IN) | payer OTHER ==
[~2020-10-15] VITALS: Ht 180.3 cm; Wt 98.4 kg
[~2020-10-15 21:21] MED LIST changes: +CARVEDILOL3.125 MG PO; +DEMADEX20 MG PO; +FLOMAX0.4 MG PO; +IPRAT-ALBUT 0.5-3 ML INH; +MUCINEX600 MG PO; +PREDNISONE 10 M10 M1 PO; +PULMICORT0.5 MG/21 INH; +SILDENAFIL20 MG PO; +SYNTHROID50 MCG PO
[2020-10-15 21:50] VITALS: BP 86/47
[2020-10-15 21:56] LABS: HEMATOCRIT 26.2 % (42.0-52.0); HEMOGLOBIN 8.6 gm/dL (14.0-18.0); MCHC 32.7 g/dL (28.0-37.0); MCV 103.9 fL (80.0-100.0); PLATELET COUNT 315 thou/uL (150-400); RBC 2.52 mil/uL (4.50-6.00); RDW 15.6 % (10.5-14.5); WBC 18.3 thou/uL (4.0-11.0)
[2020-10-15 22:04] LABS: CALCIUM 8.3 mg/dL (8.5-10.1); CREATININE 2.5 mg/dL (0.7-1.3); POTASSIUM 4.1 mmol/L (3.5-5.1)
[2020-10-15 22:14] LABS: ALBUMIN 2.8 g/dL (3.4-5.0); TOTAL PROTEIN 6.1 g/dL (6.4-8.2); TROPONIN-I 0.09 ng/mL (<0.06)
[2020-10-15 23:17] VITALS: BP 95/56
[2020-10-15 23:33] VITALS: BP 95/56
[2020-10-16] VITALS (116 sets, daily range): BP systolic 43–136; BP diastolic 20–109
[2020-10-16 00:18] LABS: MACROCYTES 1+
--- NOTE | 2020-10-16 04:31 | NUR ---
NEW PATIENT FOR SOA, AND HIGH TROPONIN. PATIENT AOX3 CONFUSED AND FORGETFUL AT TIMES.PATIENT SKIN IS WARM AND DRY. PATIENT ON 4 L OF OXYGEN EWHILE ASLEEP. PATIENT REFUSED HOSPITALS C PAP. PATIENT ON CONTINOUS O2 MONITOR. O2 SAT IS >95%. PATIENT HAS A HOGAN, CATH CARE DONE. FALL PRECAUTION IN PLACE. PATIENT IN BED ASLEEP AT THIS TIME BREATHING REGULAR AND UNLABOURED.
[2020-10-16 05:41] LABS: ABSOLUTE NEUTROPHILS 15.3 thou/uL (1.4-8.2); BASOPHILS 0.5 % (0.0-2.0); EOSINOPHILS 0.1 % (0.0-3.0); HEMATOCRIT 25.7 % (42.0-52.0); HEMOGLOBIN 8.9 gm/dL (14.0-18.0); MCH 35.6 pg (26.0-34.0); MCHC 34.5 g/dL (28.0-37.0); MCV 103.4 fL (80.0-100.0); MONOCYTES 6.1 % (1.0-8.0); PLATELET COUNT 308 thou/uL (150-400); POLYS 90.3 % (36.0-66.0); RBC 2.49 mil/uL (4.50-6.00); RDW 15.4 % (10.5-14.5)
[2020-10-16 05:57] LABS: CALCIUM 8.5 mg/dL (8.5-10.1); CREATININE 2.5 mg/dL (0.7-1.3); MAGNESIUM 2.8 mg/dL (1.8-2.4); POTASSIUM 3.8 mmol/L (3.5-5.1); TROPONIN-I 0.11 ng/mL (<0.06)
--- NOTE | 2020-10-16 09:37 | NUR ---
Nutrition: pt admitted with dyspnea, high troponin. Received consult stating malnutrition-defer to physician. Familiar with pt from recent admit. PMH: CHF, CAD, HTN, CABG, CVA. Usual intake is fair-had been eating approx. 50% of meals plus glucerna last admit. Not a big eater. Weight up 20# from UBW 240# at present. Meds: torsemide, prednisone, protonix, statin. Family reports they will have pt dentures later today. ST had rec Mech soft last admit but family reports pt has been on regular consistency. Pt prefers strawberry glucerna so will add to all meals. no hx DM noted however. Currently on renal diet and based on present labs would liberalize to heart healthy only. Consider low risk with interventions in place.
--- NOTE | 2020-10-16 10:33 | NUR ---
Pt TRANSFERRING TO ICU. WILL PLACE ON HOLD AND AWAIT NEW ORDERS TO RESUME WHEN APPROPRIATE
[2020-10-16 10:35] LABS: BE(vivo) 3.4 mmol/L (-2 to +3); HCO3 26.8 mmol/L (22.0-26.0); PCO2 36.2 mmHg (35.0-45.0); PO2 46.2 mmHg (80.0-100.0); pH 7.488 (7.360-7.450); sO2 85.7 % (92.0-98.0)
--- NOTE | 2020-10-16 11:29 | NUR ---
Assumed pt care this am, pt is lethargic and BP is 95/56 carvedilol on hold. and daughter is at the bedside. Physical therapy tried to work with the pt, had a syncopal event Dr. Butler at the bedside and cardio ADMINISTRATOR SOCIAL WELFARE. Fc in place draining dark urine. Labs ordered, pt is transferred to the ICU room 242, report given to the ICU nurse. Pt is now transferred.
--- NOTE | 2020-10-16 12:57 | NUR ---
PATIENT TRANSFERRED TO ICU AT 1130.
--- NOTE | 2020-10-16 13:12 | EKG ---
[place] [address] [facility] 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
[2020-10-16 18:44] LABS: BE(vivo) 5.7 mmol/L (-2 to +3); HCO3 29.2 mmol/L (22.0-26.0); PCO2 38.6 mmHg (35.0-45.0); pH 7.496 (7.360-7.450); sO2 98.6 % (92.0-98.0)
[2020-10-16 22:42] LABS: URINE BILIRUBIN NEGATIVE (Negative); URINE BLOOD 2+ (Negative); URINE CLARITY CLEAR; URINE COLOR YELLOW; URINE GLUCOSE-RANDOM* NEGATIVE (Negative); URINE KETONES NEGATIVE (Negative); URINE PROTEIN (DIPSTICK) TRACE (Negative); URINE SPECIFIC GRAVITY 1.015 (1.005-1.035); URINE UROBILINOGEN 0.2 E.U./dl (0.2-1.0)
[2020-10-16 22:47] LABS: URINE LEUKOCYTES-REFLEX 1+ (Negative); URINE NITRITE-REFLEX POSITIVE (Negative)
[2020-10-16 23:27] LABS: BACTERIA-REFLEX 1-9 Few /HPF (None Seen); CASTS None Seen /LPF (None Seen); MUCUS 0-3 Light strn/LPF (None Seen); SQUAMOUS None Seen /LPF (0-3); URIC ACID CRYSTALS 4-10 Moderate /LPF (None Seen); URINE RBC 1-2 Rare /HPF (NONE SEEN); URINE WBC-REFLEX 6-15 Few /HPF (0-5)
[2020-10-17] VITALS (53 sets, daily range): BP systolic 87–123; BP diastolic 44–82
--- NOTE | 2020-10-17 03:21 | NUR ---
ASSUMED CARE AT 1900. PT TAKEN TO CT FOR SCAN OF HEAD AT START OF SHIFT. PT INITIALLY LETHARGIC, WOULD ONLY SAY "I DON'T KNOW" WHEN ASKED ANY QUESTIONS, BUT WOULD BRIQUETTE MOLDER TO COMMAND. BY 1999, PT WAS AWAKE, ASKING APPROPRIATE QUESTIONS ABOUT HOW HE GOT INTO THE HOSPITAL, ANSWERING ORIENTATION QUESTIONS CORRECTLY, AND UNDERSTOOD WHY HE HAD TO WEAR BIPAP. AFTER MIDNIGHT, SLIGHTLY RESTLESS, SAYS HE HURTS EVERYWHERE BUT REFUSED TYLENOL. CONTINUES ON DOPAMINE GTT FOR BP SUPPORT. WILL CONTINUE TO MONITOR.
[2020-10-17 05:03] LABS: ALBUMIN 2.7 g/dL (3.4-5.0); CALCIUM 8.3 mg/dL (8.5-10.1); CREATININE 2.1 mg/dL (0.7-1.3); PHOSPHORUS 3.2 mg/dL (2.5-4.9); POTASSIUM 3.8 mmol/L (3.5-5.1)
[2020-10-17 05:36] LABS: GLYCOHEMOGLOBIN (HGB A1C) 6.5 % (4.8-5.6)
[2020-10-18] VITALS (37 sets, daily range): BP systolic 78–124; BP diastolic 41–79
--- NOTE | 2020-10-18 08:17 | NUR ---
PT WITH SYNCOPAL/NEAR-SYNCOPAL EVENT WITH P.T., TRANSFERRED TO ICU BEFORE OT EVAL COULD BE INITIATED UNDER CURRENT ORDER. NEED NEW ORDERS D/T STATUS CHANGE BEFORE OT EVAL CAN BE COMPLETED.
--- NOTE | 2020-10-18 14:33 | NUR ---
AT APPX 1330, PT MOVED TO ROOM 240 VIA BED. PT ARRIVED TO NEW ROOM IN STABLE CONDITION. FAMILY AT BEDSIDE. PERSONAL BELONGINGS MOVED W/ PT.
[2020-10-19] VITALS (82 sets, daily range): BP systolic 67–137; BP diastolic 40–104
[2020-10-19 04:44] LABS: HEMATOCRIT 27.6 % (42.0-52.0); HEMOGLOBIN 9.4 gm/dL (14.0-18.0); MCH 35.3 pg (26.0-34.0); MCHC 34.1 g/dL (28.0-37.0); MCV 103.5 fL (80.0-100.0); RBC 2.66 mil/uL (4.50-6.00); RDW 15.3 % (10.5-14.5); WBC 14.2 thou/uL (4.0-11.0)
[2020-10-19 04:59] LABS: CALCIUM 8.2 mg/dL (8.5-10.1); CREATININE 1.8 mg/dL (0.7-1.3); POTASSIUM 3.8 mmol/L (3.5-5.1)
--- NOTE | 2020-10-19 06:03 | NUR ---
ASSUMED CARE AT 1900. PT INTIALLY A&Ox4 AT START OF SHIFT, AWARE OF TIME AND WHEN HE WANTED TO GO TO BED/PUT ON BIPAP. ONCE HE WAS ON THE BIPAP, HE BECAME MORE RESTLESS, WANTING TO GET UP TO THE TOILET, EXPLAINED THAT HIS BP WAS TOO UNSTABLE TO GET UP AT THIS TIME, AND HE SEEMED TO UNDERSTAND; BUT OMCE PLACED ON BEDPAN, HE KEPT TURNING ONTO HIS SIDE AND FORGETTING HE WAS SITTING ON IT. VERY RESTLESS THE REST OF THE NIGHT, W/INCREASING CONFUSION, PULLING AT GOWN AND BEDDING, AND TAKING PULSE-OX OFF. SWITCHED BACK TO NC AROUND 0300 AFTER HE PULLED THE BIPAP OFF. PT'S WORK OF BREATHING IS MORE DIFFICULT AND HAS BRIEF SAT DROPS INTO UPPER 80'S D/T SLEEP APNEA. CONTINUES ON DOPAMINE GTT OVERNIGHT. POOR PROGRESSION TOWARDS GOALS, WILL CONTINUE TO MONITOR.
--- NOTE | 2020-10-19 11:13 | NUR ---
chart review. discussed during los, dr mcduffie consult. he was recently here and dc to snf 10/11. unable to visit with [facility] on bipap. cm spoke with [facility], bedside nurse. he was on skilled rehab. needed assist with all adls including meals. use of wheel chair. pcp dr penny garcia. [facility] followed in past for hh needed if needed. DCP back to skilled rehab at [facility]. will cont following as needed for dc needs.
[2020-10-20] VITALS (92 sets, daily range): BP systolic 33–142; BP diastolic 18–118
[2020-10-20 04:50] LABS: HEMOGLOBIN 9.3 gm/dL (14.0-18.0); MCH 35.7 pg (26.0-34.0); MCHC 34.3 g/dL (28.0-37.0); RBC 2.6 mil/uL (4.50-6.00); RDW 15.4 % (10.5-14.5); WBC 11.2 thou/uL (4.0-11.0)
[2020-10-20 05:13] LABS: CALCIUM 8.3 mg/dL (8.5-10.1); CREATININE 1.9 mg/dL (0.7-1.3); POTASSIUM 4.1 mmol/L (3.5-5.1)
--- NOTE | 2020-10-20 07:21 | NUR ---
Assummed care of this patient from the night nurse, Osmar NEVES. Patient remains on Dopamine and High Flow O2. Will continue to monitor.
--- NOTE | 2020-10-20 10:48 | NUR ---
discussed during am rounds and los. dr mcduffie consult. reta to meet with [facility]. cm sent referral to [facility] and their to call daughter rod at [phone].
--- NOTE | 2020-10-20 12:00 | NUR ---
FAMILY AT BESIDE. DOPAMINE STOPPED AND LEVOPHED HUNG
--- NOTE | 2020-10-20 15:00 | NUR ---
HOSPICE STAFF IN THE EVALUATED AND DISCUSS HOSPICE OPTIONS WITH THE FAMILY AND THE PATIENT. ALL IN AGREEMENT TO MOVE TO THE HOSPICE HOUSE WHEN BED IS AVAILABLE.
--- NOTE | 2020-10-20 18:33 | NUR ---
PATIENT IS NOT PROGRESSING TOWARDS OUTCOME GOALS. PATIENT REMAINS ON LEVOPHED TO KEEP HIS MAP GREATER THAN 65 MM[facility], VISITING WITH FAMILY MEMBERS AND TELLING FAMILY STORIES. ORIENTED TO POC HE STATES HE IS GOING TO THE HOSPICE HOUSE ON TOMORROW.
[2020-10-21] VITALS (44 sets, daily range): BP systolic 58–150; BP diastolic 33–107
[2020-10-21 05:20] LABS: CALCIUM 8.3 mg/dL (8.5-10.1); POTASSIUM 4.2 mmol/L (3.5-5.1)
--- NOTE | 2020-10-21 06:38 | NUR ---
PATIENT REMIANS A/O X2 CONFUSED OF TIME. DENIES SOA, NV. AFEBRILE. HYPOTENSIVE OTHERWISE VSS. ON LEVOPHED GTT FOR HYPOTENSION. REMAINS ON 8L VIA NC AND BIPAP AT HS. REFUSES BLOOD PRESSURE CHECK. PULLS OFF BIPAP. PATIENT REORIENTED. HOGAN IN PLACE WITH ADEQUATE U/O. DENIES NEEDS. WILL KEEP MONITORING.
--- NOTE | 2020-10-21 09:37 | NUR ---
Per ASSESSMENT DIRECTOR Jared Lobo, she will call the proper dept to turn defib setting off of pt AICD before transfer to Hospice House.
--- NOTE | 2020-10-21 11:03 | NUR ---
cm follow up with hospice house. they will all when bed is open ups. discussed during am round and los. will cont following as needed for dc needs. both daughters at beside during am rounds.
[2020-10-22] VITALS (39 sets, daily range): BP systolic 80–153; BP diastolic 34–103
--- NOTE | 2020-10-22 07:15 | NUR ---
Assummed care from the night nurse Bhumika NEVES, Patient is alert and resting quietly. Levophed off.
--- NOTE | 2020-10-22 14:00 | NUR ---
Discussed during am rounds and los with hospitalist. hospice reached out to cm; the house will possible be able to move tonight. [facility] form and outside hospital DNR on front of pt chart. hospice number and fax number on chart for possible dc to hospice house when bed opens. DCP: hospice house, [facility] location in [facility] when bed is available.
--- NOTE | 2020-10-22 19:10 | NUR ---
PATIENT CONTINUES TO WAIT FOR A BED AT THE HOSPICE HOUSE. FAMILY AT BEDSIDE TODAY AND AWARE OF THE PLAN OF CARE. LEVOPHED REMAINS OFF. PATIENT IS PROGRESSING SLOWLY BUT OVER ALL CONDITION GUARDED.
--- NOTE | 2020-10-22 19:51 | NUR ---
REPORT CALLED TO RODOLFO NEVES ON . PATIENT TRANSFERRED VIA BED WITH O2 AND BELONGINGS. ELIE NOTIFIED OF HER 'S NEW ROOM NUMBER VIA PHONE.
--- NOTE | 2020-10-22 22:20 | NUR ---
PT ARRIVED FROM THE ICU AT AROUND 1945 HOURS. PT IS ALERT TO SELF AND PLACE. TOLD ME HE IS FROM THE HOSPICE HOUSE [facility] [address] BUT KNOWS HE IS AT [facility]. ALSO KNOWS MONTH AND DATE. CALM, COOPERATIVE, DOES NOT APPEAR TO BE IN ANY ACUTE DISTRESS. REMAINS ON 06/24L/NC, HAS A CONGESTED COUGH. WAS ABLE TO SWALLOW HIS HS MEDS WITHOUT ANY DIFFICULTIES.OBSERVED TURNING SELF TO SLEEP ON RIGHT SIDE-SO HE IS MOVING AROUND IN BED GOOD.ISOLATION FOR ESBL IN URINE-HOGAN TO D/D WITH NOTED DARK YELLOW URINE. AFEBRILE.WILL CONTINUE WITH POC TILL EOS.
[2020-10-23 07:37] VITALS: BP 95/64
--- NOTE | 2020-10-23 13:19 | NUR ---
ASSUMED PT CARE THIS AM. PT IS ALERT & ORIENTED X2 SELF AND PLACE. PT HAS IV SITE ON R IJ TRIPLE LUMEN. PT HAS HOGAN CATH IN PLACE. PT ABLE TO SWALLOW MEDICATION WHOLE. NO EDEMA NOTED. GIVEN Z GUARD ON THE BUTTOCK. PT HAS O2 4L/MIN NC. PT FAMILY AT THE BEDSIDE. INFORMED DR THAT [facility] CALLED TODAY AND ABLE TO TAKE PT TODAY. CALLED MAINTENANCE TO FIX THE TV PER PT AND PT FAMILY REQUEST. PT ON THE BED, BED ON THE LOWEST POSITION, SIDE RAILS UP, CALL LIGHT WITHIN REACH. WILL CONTINUE TO MONITOR PT. FOLLOW POC.
== END 2020-10-23 16:07 | disposition hospice, inpatient (51) | DRG 871 ==
LOC: ER 21:21 → ICU 22:23 → EROBS 22:23 → 4W 23:42 → ICU 10-16 11:16 → 4S 10-22 19:52
PROVIDERS: Emergency Medicine; Hospitalist; Internal Medicine; Nurse Practitioner; Nurse Practitioner Adult Health; Nurse Practitioner Family; Pediatrics; ADMIT Internal Medicine; ATTEND Internal Medicine
DX: A41.9 Sepsis, unspecified organism (principal); J18.9 Pneumonia, unspecified organism; J96.21 Acute and chronic respiratory failure with hypoxia; I50.43 Acute on chronic combined systolic (congestive) and diastolic (congestive) heart failure; I42.9 Cardiomyopathy, unspecified; E46 Unspecified protein-calorie malnutrition; N17.9 Acute kidney failure, unspecified; I13.0 Hypertensive heart and chronic kidney disease with heart failure and stage 1 through stage 4 chronic kidney disease, or unspecified chronic kidney disease; Z16.12 Extended spectrum beta lactamase (ESBL) resistance; S37.39XA Other injury of urethra, initial encounter; R31.9 Hematuria, unspecified; E78.5 Hyperlipidemia, unspecified; Z66 Do not resuscitate; N18.9 Chronic kidney disease, unspecified; K21.9 Gastro-esophageal reflux disease without esophagitis; E03.9 Hypothyroidism, unspecified; G47.33 Obstructive sleep apnea (adult) (pediatric); R77.8 Other specified abnormalities of plasma proteins; R33.9 Retention of urine, unspecified; I27.20 Pulmonary hypertension, unspecified; R73.9 Hyperglycemia, unspecified; I25.10 Atherosclerotic heart disease of native coronary artery without angina pectoris; I95.9 Hypotension, unspecified; Z95.1 Presence of aortocoronary bypass graft; Z79.82 Long term (current) use of aspirin; Z79.899 Other long term (current) drug therapy; Z86.73 Personal history of transient ischemic attack (TIA), and cerebral infarction without residual deficits; Z95.810 Presence of automatic (implantable) cardiac defibrillator; Z87.891 Personal history of nicotine dependence; Z68.30 Body mass index [BMI] 30.0-30.9, adult; X58.XXXA Exposure to other specified factors, initial encounter; Y93.89 Activity, other specified; Y92.89 Other specified places as the place of occurrence of the external cause; Y99.8 Other external cause status
CPT/HCPCS: 10078; 10100